=== PATIENT | male | born 1990 | race Caucasian/White ===

== ENCOUNTER 2021-10-10 08:45 | Emergency (ER) | payer OTHER ==
[~2021-10-10] VITALS: Ht 185.4 cm; Wt 90.7 kg
[2021-10-10] MEDS ORDERED: LORAZEPAM INJ 2 MG/ML VIAL ONE (08:56)
[2021-10-10] MEDS ORDERED: IV NS 0.9% 1,000 ML BAG IV ONE (09:00)
[2021-10-10] MEDS ORDERED: LORAZEPAM INJ 2 MG/ML VIAL IVP ONE (09:00)
--- NOTE | 2021-10-10 09:11 | NUR ---
BIB ra, pt was dropped off at fire station aggitated s/p drug use per friend, versed given in field. Connected to the monitor and pulse ox. Kept comfortable, restraint in placed due to patient is very agitated. Sitter at bedside for constant monitoring. Will continue to monitor accordingly.
[2021-10-10] MEDS ORDERED: diphenhydrAMINE HCL 50 MG/ML VIAL ONE (09:21)
[2021-10-10] MEDS ORDERED: HALOPERIDOL LACTATE INJ 5 MG/ML VIAL ONE (09:22)
[2021-10-10] MEDS ORDERED: HALOPERIDOL LACTATE INJ 5 MG/ML VIAL IM ONE (09:30)
[2021-10-10] MEDS ORDERED: diphenhydrAMINE HCL 50 MG/ML VIAL IV ONE (09:30)
[2021-10-10 09:54] LABS: BILIRUBIN,URINE SMALL (NEGATIVE); COLOR,URINE DARK YELLOW (YELLOW); LEUKOCYTE ESTERASE ,URINE NEGATIVE (NEGATIVE); NITRITE, URINE NEGATIVE (NEGATIVE); PROTEIN,URINE 100 mg/dl (NEGATIVE); UGLUCOSE NEGATIVE (NEGATIVE); UROBILINOGEN,URINE 0.2 EU/dL (0.2)
--- NOTE | 2021-10-10 10:02 | NUR ---
BIGHT MAKER AT BEDSIDE FOR BLOOD DRAW
--- NOTE | 2021-10-10 10:04 | NUR ---
MOTHER SHAUN JULIO [phone] AT BEDSIDE
[2021-10-10 10:19] LABS: BACTERIA,URINE None seen /HPF (None Seen); SQUAMOUS EPITHELIAL CELL,UR None Seen /HPF (None Seen)
[2021-10-10 10:20] LABS: MUCUS,URINE Few /LPF (None Seen); URINE AMORPHOUS URATE Few /HPF (None Seen)
[2021-10-10 10:20] LABS: BASOPHILS # (AUTO) 0.1 K/uL (0.0-0.2); BASOPHILS % (AUTO) 0.5 % (0.0-2.0); HEMATOCRIT 30 % (39-51); HEMOGLOBIN 10.1 g/dL (13.5-17.5); LYMPHOCYTES # (AUTO) 1.8 K/uL (0.8-4.8); LYMPHOCYTES % (AUTO) 14.6 % (20.0-44.0); MEAN CORPUSCULAR HGB CONC 34 g/dl (31.0-36.0); MEAN CORPUSCULAR VOLUME 90 fL (80-96); MONOCYTES # (AUTO) 1.8 K/uL (0.1-1.30); MONOCYTES % (AUTO) 14.4 % (2.0-12.0); NEUTROPHILS # (AUTO) 8.6 K/uL (1.8-8.9); NEUTROPHILS % (AUTO) 70.5 % (43.0-81.0); PLATELET COUNT (AUTO) 233 K/uL (150-450); RED BLOOD CELL COUNT(AUTO) 3.32 MIL/uL (4.5-6.0); WHITE BLOOD COUNT (AUTO) 12.2 K/uL (4.3-11.0)
[2021-10-10 10:34] LABS: ALANINE AMINOTRANSFERASE 218 U/L (12-78); ALBUMIN 3.7 g/dL (3.4-5.0); ALCOHOL, BLOOD < 3 mg/dL (0-0); ALKALINE PHOSPHATASE 61 U/L (46-116); ASPARTATE AMINOTRANSFERASE 634 U/L (15-37); BILIRUBIN,DIRECT 0.3 mg/dL (0.0-0.2); BILIRUBIN,TOTAL 1.2 mg/dL (0.2-1.0); CALCIUM, SERUM 8.3 mg/dL (8.5-10.1); CARBON DIOXIDE 24 mmol/L (21-32); CHLORIDE 97 mmol/L (98-107); CREATININE 1.3 mg/dL (0.6-1.3); GLUCOSE 87 mg/dL (74-106); POTASSIUM 4.2 mmol/L (3.5-5.1); SODIUM SERUM 132 mmol/L (136-145); TOTAL PROTEIN, SERUM 6.4 g/dL (6.4-8.2); UREA NITROGEN, BLOOD 39 mg/dL (7-18)
[2021-10-10 10:36] LABS: ACETAMINOPHEN < 10 ug/ml (10-30)
--- NOTE | 2021-10-10 11:04 | NUR ---
CALLED PUSHPA ESPINOZA.
--- NOTE | 2021-10-10 12:19 | NUR ---
CXR DONE AT BEDSIDE
--- NOTE | 2021-10-10 16:14 | NUR ---
SS Consult: SS Consult requested for drug abuse. The pt. is a 30 year old maled who was BIBRA after pt.'s friends dropped him off at the fire station as he was agitated and intoxicated with Amphetamine. PUSHPA met with pt. bedside. Pt. is very drowsy and just gave verbal consent to be referred back to [facility]. The pt.'s mother, Angelica Mckeon [phone] at bedside and was able to provide some collateral information. Per Angelica the pt. began using drugs at the age of 18 when Angelica "was out of his life". Per Angelica, the pt. was a Heroin addict and has had multiple rehab admissions since. Per Andry the pt. has OD with Code Blue 4 times in the last 4 months as pt. has began using Fentanyl. Angelica stated that the pt. was last admitted to [facility] [[address] [place] [address]; ] last nd was then "discharged" on Thursday. Per Christi Dominguez and Juan Jose from [facility] where pt. was once in rehab recommended [facility]. Per Angelica [facility] had agreed to readmit patient. PUSHPA called Amalia [facility] [phone] ext#[phone] to verify pt. may be readmitted for Detox and Residential Treatment. Amalia requested Clinicals. Pushpa faxed clinicals to . Per Amalia, Pt. should call INTAKE: [phone] to verbally express if he would like to return to [facility]. Noted . PUSHPA notified RNAleksandra and patient's mother, Angelica. PUSHPA provided Angelica with addiction and mental health resources for patient and she accepted them: ADDICTION RESOURCES For Drugs and Alcohol [facility] Substance Abuse Helpline([facility] Outpatient treatment, residential treatment, recovery support for youth and adults [facility] www.actionfamilycounseling.CoinJar [facility] Teen programs for drug/alcohol education and support [facility] [place]. Program for adults, sliding scale provides support and education [facility] www.Maui Imagingation.org [place]; Outpatient/residential treatment programs; transition to sober living [facility].org [place]; Outpatient and residential treatment programs; transition to sober living [facility] [place]; Outpatient education and supportive programs for teens and adults [facility] www.oasiswomensrecovery.org [place]; Residential treatment and work program for females only [place] www.TradeCard[place].iJigg.com [place]: Outpatient/residential treatment program for teens and young adults [facility] www.[facility].org [place] Detox, inpatient, outpatient for adults and youth [facility], [facility]. [place]; Outpatient programs and referrals to community residential programs. Alcoholics Anonymous -SFV information and meeting and schedules www.aa-intergroup.org Jv-Proy-Tjefdbv https://al-anon.org/ [place] support groups for family of alcoholics. Marijuana Anonymous www.madistrict6.org -SFV listing of meetings Narcotics Anonymous www.na.org SOBER LIVING RESOURCES [facility] www.soberhousing.net A non-profit agency that provides resources to recovery and sober living homes throughout [facility], [facility] Men's Sober Living Homes: A Work in Progress, [facility], [employer] [place] [facility], [facility] David Yi Women's Sober Living Homes: [facility] x [phone] [place], [place] [facility] [employer] [place] [facility] Coed Sober Living Homes: [facility]--Outpatient [facility] [address] [place], [place] [address] (Specializes in in-depth psychotherapy for emotional distress: anxiety, depression, interpersonal conflicts, life transitions, childhood abuse) [facility] [address] [place] [address] (Assist with solving problem marital difficulties, separation & divorce, aging parents, & grief, chronic & terminal illness) [facility] [address] [place] [address] (Deal with loss & grief, anxiety, marital difficulties) Homebound/Mental Health Services [address] [facility], [address] [place], [place] [id number] (Provide in-home mental services to people who are incapable of leaving their homes) [facility] for Needs of the Elderly Senior Service/Resource Center [address] [place] [address] [facility] [address] [place], [place] [id number] Mental Health Services [facility] [address] [place] [address] Services: Outpatient therapy for children, teens, young adults, adults, older adults, and families; Psychiatric services, medication support Psychiatric Outpatient Services [facility] Partial Hospitalization and Intensive Outpatient Program (Managed Care and [place] Only)[address] [facility]. [facility] [phone] [facility] Partial Hospitalization and Outpatient [id number] [facility]. [address] [place], [place] [phone] [facility] Partial Hospitalization and Outpatient [id number] Madeline [facility]. [place], [place] [phone] [facility] Mental Health [place] [id number] [facility]. [address] [place], [place] [phone] [facility] David Yi Partial Hospitalization and Outpatient [id number] SEVERIANO [phone] Crisis and Hotline Telephone Numbers 24-Hour service unless stated Java Crisis Hotlines: [facility] Mental Health/Crisis Line........495.539.8063 Suicide Prevention Center (24 Hours).......747.485.2334 Suicide Prevention Crisis Center.......741.131.2903 (24 Hours) Assaults Against Women Hotline.........956.563.8336 (24 Hours -- [facility]) Women and Children Crisis Long-Term...........849.534.6757 (24 Hours) Child Abuse Hotline............413.279.9943 [facility] (24 Hours)..........217.201.6339 Alcoholics Anonymous (24 Hours)..........632.174.2666 Cocaine Anonymous (24 Hours)............465.303.2041 Narcotics Anonymous (24 Hours)..........741.242.3814 [address] [facility] [address], [place] [address]
--- NOTE | 2021-10-10 16:28 | NUR ---
PUSHPA called Amalia [facility] [phone] ext#[phone] to verify pt. may be readmitted for Detox and Residential Treatment. Amalia requested Clinicals. Pushpa faxed clinicals to . Per Amalia, Pt. should call INTAKE: [phone] to verbally express if he would like to return to [facility]. Noted . PUSHPA notified RNAleksandra and patient's mother, Angelica.
--- NOTE | 2021-10-10 17:40 | NUR ---
DR LAW AT BEDSIDE
--- NOTE | 2021-10-10 18:12 | NUR ---
US AT BEDSIDE
--- NOTE | 2021-10-10 20:31 | NUR ---
PT IS ASLEEP, DROWSY UPON WAKING. CONNECTED TO MONITOR. FAMILY AT BEDSIDE
--- NOTE | 2021-10-10 22:25 | NUR ---
PT PROVIDED WITH FOOD AND WATER
[2021-10-10] MEDS ORDERED: CEPH500C2 PO (23:12)
--- NOTE | 2021-10-11 02:23 | NUR ---
PT ASLEEP, FAMILY AT BEDSIDE. WILL CONTINUE TO MONITOR
[2021-10-11] MEDS ORDERED: CEPHALEXIN MONOHYDRATE 500 MG CAPSULE PO ONE ×2 (04:00→04:01)
--- NOTE | 2021-10-11 05:46 | NUR ---
PROVIDED PT WITH WARM BLANKETS, STILL CONNECTED TO MONITOR.
--- NOTE | 2021-10-11 08:59 | NUR ---
PATIENT HAS BEEN REFERRED TO [facility] FAX [phone] PHONE [phone] EXT [phone] LOOK FOR MELI PATIENT HAS BEEN WITH THE PROGRAM BEFORE AND WOULD LIKE TO ASSESS PATIENT.
--- NOTE | 2021-10-11 09:30 | NUR ---
MEAL TRAY PROVIDED
--- NOTE | 2021-10-11 09:45 | NUR ---
CALLED [facility] [[phone]], LEFT VOICEMAIL FOR LIBIA.
[2021-10-11] MEDS ORDERED: ONDANSETRON 4 MG TAB.RAPDIS ONE (11:41)
[2021-10-11] MEDS ORDERED: ONDANSETRON 4 MG TAB.RAPDIS SL ONE (12:00)
[2021-10-11] MEDS ORDERED: CEPH500C2 PO (13:19)
--- NOTE | 2021-10-11 13:32 | NUR ---
IV removed. Catheter intact and site benign. Pressure and 4x4 applied to site. No bleeding noted.
--- NOTE | 2021-10-11 13:45 | NUR ---
PATIENT DISCHARGED IN STABLE IN STABLE CONDITION. WILL BE BROUGHT BY MOTHER TO DETOX PROGRAM IN [facility]. ALL BELONGINGS BROUGHT WITH THE PATIENT.
[2021-10-11 13:49] VITALS: BP 132/67
--- NOTE | 2021-10-11 14:02 | NUR ---
SS Note: Pt. Is a 30-year-old male who demonstrates adequate insight to the reason for hospitalization. Per pt., he presents to the ER for agitated and intoxicated on methamphetamine. Pt.s mother , Angelica, was at bedside. Pt. was oriented x3, alert, and cooperative. During interview, pt. was capable of following directions and appeared unkempt. Pt.s speech was at a normal rate and pt.s mood was elevated. Pt. reported no hx of mental health, denies suicidal ideation, or homicidal ideation. Pt. denies auditory hallucinations, visual hallucinations, paranoia, or delusions. Pt. stated that he uses methamphetamine. Pt. was at [facility] for 8 months and got discharged in August of this year. When he left the facility, he relapsed. PUSHPA explored pt.s living situation. Per pt., he is homeless and that is where his drug habits came from. Pt. expressed that he needs to go to a detox program. PUSHPA and Dorcas [Substance abuse Lending Consultant] helped pt. find a bed at [facility] in [place] [[address] [place] [address]]. Plan: Pt. and mother is on their way to [facility] in [place] for a detox intake.
== END 2021-10-11 13:49 | disposition home or self-care (01) ==
LOC: ER 08:50
DX: F15.129 Other stimulant abuse with intoxication, unspecified (principal); R45.1 Restlessness and agitation
CPT/HCPCS: 36415; 73140; 80048; 80076; 80143; 80307; 80320; 81001; 85025; 93971; 96361; 96372; 96374; 96375; 99285; J1200; J1630; J2060; J7030; Q0162; G0480